=== PATIENT | female | born 1940 | race Caucasian/White ===

== ENCOUNTER 2020-12-07 08:37 | Emergency (ER) | payer MEDICARE, BC ==
[2020-12-07] MEDS ORDERED: Ondansetron 4 MG/2 ML SDV IVPUSH ONE (09:19)
[2020-12-07] MEDS ORDERED: Sodium Chloride 0.9% 10 ML Syringe FLUSH PRN (09:19)
[2020-12-07] MEDS ORDERED: Lactated Ringers 1,000 ML IV ONE (09:19)
--- NOTE | 2020-12-07 10:24 | CR ---
Chest: Portable view of the chest was obtained. Comparison: Prior chest x-ray of 10/02/13. Previous density within the medial right upper chest has resolved. Slight atelectasis is seen within the left lung base. Lungs are otherwise clear with no acute parenchymal change. Heart size is normal. Tortuous thoracic aorta is seen. Previous right shoulder surgery is noted which is an interval change from prior exam. Impression: 1. Findings believed to be incidental as noted above. 2. Nothing acute is appreciated. Diagnostic code #2
[2020-12-07] MEDS ORDERED: Acetaminophen 325 MG Tab ONE (12:06)
--- NOTE | 2020-12-07 12:27 | EDM.PDOC ---
ED HPI GENERAL MEDICAL PROBLEM - General Chief Complaint: General Stated Complaint: [facility] Time Seen by Provider: 12/07/20 08:48 Source of Information: Reports: Patient, EMS, RN Notes Reviewed - History of Present Illness INITIAL COMMENTS - FREE TEXT/NARRATIVE: 80 yr old female had onset of L upper abdominal, L lower chest discomfort this past Sunday 2 days ago. The pain was quite bad at onset, now better but still has not gone away. She now feels it mostly when standing or walking. 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 Surgery is reported to have gone well. She was in the hospital for about 8 days. She does not feel short of breath. No cough, fever or chills. No nausea, vomiting or constipation. 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: Reports: Other (see below) Other 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: IV fluid, saline lock - Related Data Allergies Allergy/AdvReac Type Severity Reaction Status Date / Time Anesthetics - Amide Type - Allergy Arrhythmias Verified 12/07/20 09:43 Select A oxycodone Allergy Vomiting Verified 12/07/20 09:45 Tazifae-Mch-Iqi Reductase Allergy Leg Cramps Verified 12/07/20 09:44 Inhibitor Sulfa (Sulfonamide Allergy Hives Verified 12/07/20 09:42 Antibiotics) Home Meds: Home Meds Extra Strength Prevagen 1 cap PO DAILY 12/07/20 [History] Gabapentin [Neurontin] 300 mg PO BEDTIME 12/07/20 [History] Meloxicam 7.5 mg PO DAILY PRN 12/07/20 [History] amLODIPine [Norvasc] 2.5 mg PO DAILY 12/07/20 [History] Past Medical History HEENT History: Reports: Hard of Hearing, Impaired Vision Cardiovascular History: Reports: Hypertension 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 TRANSIT OPERATOR History: pt reports that she had prolapse repaired in [place] 2014 Musculoskeletal History: Reports: Other (See Below) 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 - Infectious Disease History Infectious Disease History: Reports: Measles, Mumps, Other (See Below) Other Infectious Disease History: COVID + antibodies test - Past Surgical History Female Surgical History: Reports: Hysterectomy Social & Family History - Tobacco Use Tobacco Use Status *Q: Never Tobacco User - Caffeine Use Caffeine Use: Reports: Coffee, Tea - Recreational Drug Use Recreational Drug Use: No ED ROS GENERAL - Review of Systems Review Of Systems: See Below Constitutional: Denies: Fever, Chills, Diaphoresis HEENT: Reports: No Symptoms Respiratory: Reports: Pleuritic Chest Pain (mild when standing). Denies: Shortness of Breath, Cough Cardiovascular: Reports: Chest Pain GI/Abdominal: Reports: Abdominal Pain. Denies: Constipation, Diarrhea, Hematochezia, Melena, Nausea, Vomiting Musculoskeletal: Reports: Back Pain (mild occasional). Denies: Shoulder Pain Neurological: Denies: Headache, Numbness, Tingling, Trouble Speaking, Difficulty Walking, Weakness ED EXAM, GENERAL - Physical Exam Exam: See Below General Appearance: Alert, No Apparent Distress Throat/Mouth: Normal Inspection Head: Atraumatic Neck: Supple Respiratory/Chest: No Respiratory Distress, Lungs Clear, Normal Breath Sounds, Chest Non-Tender Cardiovascular: Regular Rate, Rhythm GI/Abdominal: Soft, Other (very minimal tenderness L upper mid abd) Back Exam: No: CVA Tenderness (L), CVA Tenderness (R) Neurological: Alert, Oriented, No Motor/Sensory Deficits Skin Exam: Warm, Dry, Normal Color Course - Vital Signs Last Recorded V/S: Last Vital Signs Temp 99.4 F 12/07/20 10:00 Pulse 80 12/07/20 10:00 Resp 16 12/07/20 10:00 BP 110/69 12/07/20 10:00 Pulse Ox 91 L 12/07/20 10:00 - Orders/Labs/Meds Orders: Active Orders 24 hr Category Date Time Status Peripheral IV Insertion Adult [OM.PC] Stat Oth 12/07/20 09:18 Ordered Labs: Laboratory Tests 12/07/20 12/07/20 12/07/20 Range/Units 09:50 10:00 10:00 WBC 7.89 (3.98-10.04) K/mm3 RBC 4.09 (3.98-5.22) M/mm3 Hgb 11.6 (11.2-15.7) gm/dl Hct 37.0 (34.1-44.9) % MCV 90.5 (79.4-94.8) fl MCH 28.4 (25.6-32.2) pg MCHC 31.4 L (32.2-35.5) g/dl RDW Std Deviation 45.0 (36.4-46.3) fL Plt Count 157 L (182-369) K/mm3 MPV 10.9 (9.4-12.3) fl Neut % (Auto) 81.3 H (34.0-71.1) % Lymph % (Auto) 6.3 L (19.3-51.7) % [place] % (Auto) 12.2 (4.7-12.5) % Eos % (Auto) 0 L (0.7-5.8) Baso % (Auto) 0.1 (0.1-1.2) % Neut # (Auto) 6.41 H (1.56-6.13) K/mm3 Lymph # (Auto) 0.50 L (1.18-3.74) K/mm3 [place] # (Auto) 0.96 H (0.24-0.36) K/mm3 Eos # (Auto) 0.00 L (0.04-0.36) K/mm3 Baso # (Auto) 0.01 (0.01-0.08) K/mm3 Sodium 143 (136-145) mEq/L Potassium 4.1 (3.5-5.1) mEq/L Chloride 106 (98-107) mEq/L Carbon Dioxide 25 (21-32) mEq/L Anion Gap 16.1 H (5-15) BUN 18 (7-18) mg/dL Creatinine 1.0 (0.55-1.02) mg/dL Est Cr Clr Drug Dosing 45.09 mL/min Estimated GFR (MDRD) 54 (>60) mL/min BUN/Creatinine Ratio 18.0 (14-18) Glucose 116 H (83-115) mg/dL Calcium 8.4 L (8.5-10.1) mg/dL Total Bilirubin 0.4 (0.2-1.0) mg/dL AST 16 (15-37) U/L ALT 23 (14-59) U/L Alkaline Phosphatase 69 (46-116) U/L Total Protein 6.6 (6.4-8.2) g/dl Albumin 3.6 (3.4-5.0) g/dl Globulin 3.0 gm/dL Albumin/Globulin Ratio 1.2 (1-2) SARS-CoV-2 RNA (JASON) Negative (NEGATIVE) - Re-Assessments/Exams Free Text/Narrative Re-Assessment/Exam: 12/07/20 15:19. WBC 7,900. Chem. all relatively normal. CXR does show tortuous aorta, evidence of prior surgery as expected. No obvious acute findings. See Radiologist report for details. Flat and upright abd normal. Vitals have been good. Sinus rythm, no ectopy. sats 96 to 100 %. she is as noted relatively pain free at rest lying slightly elevated. It is when she stands or walks that she is feeling some discomfort, not as bad today as Sunday 2 days ago. It does seem safe for her to go home. Strong return precautions given. Discharge instr. as documented. Departure - Departure Time of Disposition: 12:25 Disposition: Home, Self-Care 01 Condition: Fair Clinical Impression: Syncope, near, Dehydration, Fever - Discharge Information Instructions: Dehydration, Adult, [id number], Syncope, [id number] Referrals: Mariana Dale MD [Primary Care Provider] - Forms: ED Department Discharge Additional Instructions: Rest. Drink plenty of fluids today and tomorrow especially. Tylenol q 6 to 8 hr as needed. Try eat regular meals and snacks, bland diet as tolerated. Sit for a few minutes as discussed before you try stand or walk. If you do get very weak, dizzy, lightheaded be sure to sit or lie down imediately so you don't pass out. Return to ED as needed if symptoms worsening in any way. Sepsis Event Note (ED) - Evaluation Sepsis Screening Result: No Definite Risk - Focused Exam Vital Signs: Vital Signs Temp Pulse Resp BP Pulse Ox 12/07/20 10:00 99.4 F 80 16 110/69 91 L 12/07/20 08:44 99.4 F 90 20 130/66 88 L - My Orders Last 24 Hours: My Active Orders 12/07/20 09:18 Peripheral IV Insertion Adult [OM.PC] Stat - Assessment/Plan Last 24 Hours: My Active Orders 12/07/20 09:18 Peripheral IV Insertion Adult [OM.PC] Stat
== END 2020-12-07 13:38 | disposition home or self-care (01) ==
LOC: JD.ED 08:37 → SUPCPDRO 08:37 → JD.ED 13:38
DX: E86.0 Dehydration (principal); R50.9 Fever, unspecified; I10 Essential (primary) hypertension; Z88.4 Allergy status to anesthetic agent; Z88.5 Allergy status to narcotic agent; Z88.8 Allergy status to other drugs, medicaments and biological substances; Z88.2 Allergy status to sulfonamides; Z79.899 Other long term (current) drug therapy; Z20.822 Contact with and (suspected) exposure to COVID-19
CPT/HCPCS: 36415; 71045; 80053; 85025; 96374; 99285; A9270; J2405; J7120; U0002; 99284